=== PATIENT | male | born 1965 | race Caucasian/White ===

== ENCOUNTER 2019-07-16 14:09 | Inpatient (IN) ==
--- NOTE | 2019-07-16 22:28 | HISTORY AND PHYSICAL ---
REASON FOR ADMISSION: Small bowel obstruction. HISTORY OF PRESENT ILLNESS: This is 53-year-old gentleman who has an extensive surgical history. He has been operated on by Dr. Medel and Dr. Ibrahim several times for bowel obstructions dating all way to the 90s, he says 5 times. Most recently he had a left inguinal hernia repair by Dr. Ibrahim. Towards the end of last week, he developed a decrease in bowel function, nausea, vomiting, abdominal distention, and colicky abdominal pains and was referred to [facility] by his primary care physician, who is in [place]. He was treated with an NG tube and apparently had imaging there that suggested a bowel obstruction, but they requested transfer [place] for continuity of the surgical care, as most of his surgical history has been here, as well as this is his hometown. He was transferred. He says this afternoon he has begun passing gas. His abdomen has become much less distended. His NG tube output has been quite high. He has had a colonoscopy within the year that was without concerns, and prior to this was in his usual state of health. Had not eaten anything unusual. MEDICAL HISTORY: He has degenerative spine disease and chronic pain associated with this. He has had prostate cancer. SURGICAL HISTORY: He has had numerous cervical spine operations. He has had at least 5 exploratory laparotomies, 1 of which included appendectomy, and he has had an open left inguinal hernia repair. SOCIAL HISTORY: Denies tobacco, alcohol, or drugs. He is on disability. He has an attentive who is here with him. FAMILY HISTORY: Negative for cancer. REVIEW OF SYSTEMS: Ten-point review of system was performed and negative unless otherwise mentioned in HPI. PHYSICAL EXAMINATION: VITAL SIGNS: He is afebrile. He is not tachycardic. PULMONARY: No increased work of breathing. GENERAL: He is alert. HEENT: Nasogastric tube in place with minimal output. NECK: No cervical masses. CARDIOVASCULAR: Normal rate. ABDOMEN: Soft, nontender, nondistended. He has a midline incision without any incisional hernia. INTEGUMENT: Warm, dry, without jaundice. PSYCHIATRIC: Appropriate affect. NEUROLOGIC: No gross deficits. PERIPHERAL VASCULAR: No lower extremity edema. LABORATORY DATA: Pending. IMAGING: Pending, but outside imaging, per patient report, suggested bowel obstruction. ASSESSMENT AND PLAN: A 53-year-old gentleman with recurrent bowel obstruction. His abdominal exam is benign. We will check labs including a urinalysis and blood cultures, as he has been outside for quite some time. Will continue nasogastric tube decompression. I am encouraged that he has had return of bowel function this afternoon via flatus, and will plan for at least plain film imaging to confirm nasogastric tube placement as well as most likely repeat CT scan versus small-bowel follow-through. We discussed the possibility of surgical exploration if his bowel obstruction fails to resolve, but I am confident that he is clinically improving. I have ordered a PPI and Lovenox for him. I have encouraged him to be out of bed and ambulating. We will monitor his electrolytes and continue IV hydration, antiemetics and pain medicine as needed. cc: Angel Andrea MD
[2019-07-16] MEDS: PROTONIX IV SCH (22:33)
[2019-07-16] MEDS: LOVENOX SUBQ SCH (22:34)
[2019-07-16] MEDS: LR 1,000 ML IV SCH (22:38)
[2019-07-16] MEDS: DILAUDID IV PRN (23:37)
[2019-07-16] MEDS: ZOFRAN IV PRN (23:37)
[2019-07-17] MEDS: DILAUDID IV PRN ×6 (03:32→21:35)
[2019-07-17] MEDS: ZOFRAN IV PRN ×5 (03:33→21:35)
[2019-07-17 06:52] LABS: URINE SOURCE CLEAN CATCH
[2019-07-17 07:11] LABS: BILIRUBIN URINE NEGATIVE (NEGATIVE); BLOOD URINE NEGATIVE (NEGATIVE); COLOR YELLOW; GLUCOSE URINE NEGATIVE (NEGATIVE); KETONE URINE 40 mg/dL (NEGATIVE); LEUKOCYTES URINE NEGATIVE (NEGATIVE); NITRITE URINE NEGATIVE (NEGATIVE); PH URINE 6.5; PROTEIN URINE TRACE mg/dL (NEGATIVE); TURBIDITY URINE CLEAR (CLEAR); UROBILINOGEN URINE 2 mg/dL (NORMAL)
[2019-07-17 07:12] LABS: HEMATOCRIT 48.1 % (42.0-52.0); HEMOGLOBIN 15.6 g/dL (14.0-18.0); MCH 29.9 PG (27-31); MCHC 32.4 g/dL (33-37); MCV 92.1 FL (81-99); MPV 10.4 FL (7.4-10.4); RBC 5.22 XMIL (4.7-6.1); RDW 12.1 % (11.5-14.5); WBC 10.4 X1000 (4.8-10.8)
[2019-07-17 07:13] LABS: UR EPITHELIAL CELLS <10 /HPF (<10); URINE BACTERIA NEGATIVE /HPF; URINE RBC <10 /HPF (<10); URINE WBC <10 /HPF (<10)
[2019-07-17 07:25] LABS: INR 1.14; PROTIME 14.8 Seconds (11.0-16.0)
[2019-07-17 08:01] LABS: AGAP 13; ALB/GLOB RATIO 1.8; ALBUMIN 4.2 g/dL (3.5-5.0); ALKALINE PHOSPHATASE 75 U/L (32-122); BUN 30 mg/dL (8-22); CALCIUM 9.1 mg/dL (8.8-10.2); CHLORIDE 102 mmol/L (98-107); COSMO 285; CREATININE 0.8 mg/dL (0.7-1.2); ESTIMATED GFR > 60; GLUCOSE 94 mg/dL (70-104); GOT 23 U/L (10-34); GPT 27 U/L (10-44); MAGNESIUM 2.6 mg/dL (1.5-2.7); POTASSIUM 4.7 mmol/L (3.5-5.1); SODIUM 140 mmol/L (136-145); TCO2 25 mmol/L (25-35); TOTAL BILIRUBIN 0.72 mg/dL (0.20-1.00); TOTAL PROTEIN 6.5 g/dL (6.3-8.3)
--- NOTE | 2019-07-17 08:49 | Diag Imaging Result Doc PS360 ---
EXAM: ABDOMEN FLAT/UPRIGHT 07/17/2019 HISTORY: small bowel obstruction TECHNIQUE: Flat and upright abdomen COMMENT: There is an NG tube with its tip in the distal stomach or duodenum. There is a fair amount of stool throughout the colon. The small bowel is not distended. There are phleboliths in the pelvis. There is no evidence of organomegaly or mass. No previous studies are available for comparison. IMPRESSION: Constipation. Electronically signed by Flavio Flores 07/17/2019 8:46 AM
--- NOTE | 2019-07-17 11:26 | Diag Imaging Result Doc PS360 ---
EXAM: CT ABD/PELVIS W/PO AND IV CON 07/17/2019 HISTORY: small bowel obstruction TECHNIQUE: This exam was performed using automated exposure control, adjustment of mA or kV according to patient size, and/or use of iterative reconstruction technique. COMMENT: There are no previous studies available for comparison. There are apparent atelectatic platelike opacities in the lower lobes bilaterally. There is an NG tube with its tip in the gastric antrum near the pylorus. The aorta is not distended. The mesenteric and renal arteries are patent. There is no evidence of nephrolithiasis or hydronephrosis. There are number of cortical cysts present in the right kidney. The pancreas is unremarkable. The spleen and adrenal glands are not enlarged. The liver is slightly hypodense suggesting fatty change. There is apparent sludge in the gallbladder. There is some stranding in the fat surrounding the gallbladder. There is a moderate amount of stool present in the colon particularly the ascending and transverse colon. Oral contrast is present in the right colon. There are some small bowel loops in the upper mid and left abdomen which are slightly distended but no mucosal thickening is present. There are some prominent mesenteric nodes. Pelvis: By history the appendix is surgically absent. There is some diverticulosis in the sigmoid colon without evidence of diverticulitis. Is gas and stool in the sigmoid and rectum. Some calcifications are present in the prostate gland which measures 5.1 cm in transverse dimension. The urinary bladder is not distended. There is no free fluid or significant adenopathy in the pelvis. There are spondylotic changes in the lumbar spine. No acute bony abnormalities are present. IMPRESSION: 1. Bibasilar atelectasis. 2. The possibility of cholecystitis cannot be excluded. 3. Questionable ileus. No evidence of small bowel obstruction. Oral contrast in the colon. 4. Constipation. Nonacute findings as described above. Electronically signed by Flavio Flores 07/17/2019 11:24 AM
[2019-07-17] MEDS: LR 1,000 ML IV SCH ×4 (13:36→21:42)
--- NOTE | 2019-07-17 14:52 | GENERAL SURGERY PROGRESS NOTE ---
DATE: 07/17/2019 SUBJECTIVE: He has had some intermittent colicky pains. Feeling some better, passing some gas, no bowel movement. No fevers. No tachycardia. OBJECTIVE: Vitals: Blood pressure 143/86. General: He is alert. HEENT: NG tube is in place with some bilious and bloody output. Cardiovascular: Normal rate. Abdomen: Soft, nontender, nondistended. LABS: I reviewed his labs. White count 10, hematocrit 48. LFTs are normal. Creatinine is normal. Electrolytes are okay. Urinalysis shows no leukocytes, no nitrites. He has had an abdominal x-ray and CT scan that do not show any clear bowel obstruction. He does have quite a lot of stool in his colon, and there is some old contrast in his colon as well, some possible changes in the gallbladder. ASSESSMENT AND PLAN: This is a 53-year-old gentleman with apparent resolving bowel obstruction. This has been a recurrent issue for him. Continue his NG tube today. Plan on maybe placing it to gravity or removal tomorrow, but otherwise, I think he is resolving his bowel obstruction without an operation. cc: Angel Andrea MD
[2019-07-17] MEDS: LOVENOX SUBQ SCH (20:03)
[2019-07-17] MEDS: SODIUM CHLORIDE 0.9% INJ SCH (20:03)
[2019-07-17] MEDS: PROTONIX IV SCH (20:03)
[2019-07-18] MEDS: DILAUDID IV PRN ×6 (03:32→20:58)
[2019-07-18] MEDS: ZOFRAN IV PRN ×4 (03:32→20:59)
[2019-07-18] MEDS: LR 1,000 ML IV SCH ×3 (13:00→23:02)
--- NOTE | 2019-07-18 20:07 | Diag Imaging Result Doc PS360 ---
EXAM: US ABDOMEN-COMPLETE INDICATION: abdominal pain COMPARISON: None. FINDINGS: There is sludge and floating debris in the gallbladder lumen. No shadowing stones are identified. The gallbladder wall is mildly thickened measuring up to 4 mm in thickness. The common bile duct is normal in diameter. Sonographic Florez's sign was reported to be negative. The liver echotexture is mildly increased diffusely suggesting hepatic steatosis. Portal venous flow is hepatopetal. The pancreas is obscured. The aorta is obscured. The IVC is unremarkable. The spleen is unremarkable. There is a 2.7 cm right renal cyst. The kidneys are unremarkable, otherwise. IMPRESSION: 1.Sludge and floating debris in the gallbladder lumen with mild wall thickening. Although sonographic Florez's sign was reported to be negative, cholecystitis cannot be completely excluded. 2.Suggestion of mild hepatic steatosis. Electronically signed by Madan Leung 07/18/2019 8:05 PM
--- NOTE | 2019-07-18 21:17 | GENERAL SURGERY PROGRESS NOTE ---
DATE: 07/18/2019 SUBJECTIVE: He continues to have intermittent pain, he says mostly in the epigastrium and right upper quadrant. No fevers. No tachycardia. Blood pressure 148/80. He is passing some gas, but he said a small amount. NG tube output has been 550 recorded, down from yesterday. OBJECTIVE: He is alert.Cardiovascular: Normal rate. Pulmonary: No increased work of breathing. NG tube is in place. Abdomen: Soft, only subjective tenderness no peritonitis, no guarding, nondistended. LABS: I reviewed his repeat CT scan that he had done. Shows no clear obstruction. There is some possible ileus, but there is oral contrast noted in the colon and then there is some changes to his gallbladder that are unclear. Given these findings, I will keep his NG tube in today. He said he felt worse when the tube was not suctioning properly. We will obtain an abdominal ultrasound to evaluate his gallbladder and we will get a small-bowel follow-through to further evaluate the transit of the small bowel. If he fails to improve this, he may warrant exploration with cholecystectomy, but we will see. cc: Angel Andrea MD
[2019-07-18] MEDS: PROTONIX IV SCH (23:03)
[2019-07-18] MEDS: SODIUM CHLORIDE 0.9% INJ SCH (23:03)
[2019-07-18] MEDS: LOVENOX SUBQ SCH (23:03)
[2019-07-19] MEDS: MORPHINE IV PRN ×10 (00:11→22:24)
[2019-07-19] MEDS: ZOFRAN IV PRN ×5 (02:08→22:24)
[2019-07-19] MEDS: LR 1,000 ML IV SCH ×3 (05:00→19:52)
[2019-07-19 07:02] LABS: BASO# 0.02 X1000 (0.0-0.2); BASO% 0.2 % (0.0-0.8); EOS# 0.05 X1000 (0.0-0.7); EOS% 0.5 % (0.0-10.0); HEMATOCRIT 49.2 % (42.0-52.0); HEMOGLOBIN 16.7 g/dL (14.0-18.0); LYMPH# 1.65 X1000 (1.2-3.4); LYMPH% 16.7 % (20.5-51.1); MCH 29.8 PG (27-31); MCHC 33.9 g/dL (33-37); MCV 87.7 FL (81-99); MONO# 0.89 X1000 (0.11-0.59); MPV 10.4 FL (7.4-10.4); NEUT# 7.25 X1000 (1.4-6.5); NEUT% 73.6 % (42.2-75.2); PLT 292 X1000 (130-400); RBC 5.61 XMIL (4.7-6.1); RDW 11.6 % (11.5-14.5); WBC 9.86 X1000 (4.8-10.8)
[2019-07-19 07:48] LABS: AGAP 12; ALB/GLOB RATIO 1.2; ALBUMIN 3.7 g/dL (3.5-5.0); ALKALINE PHOSPHATASE 72 U/L (32-122); BUN 22 mg/dL (8-22); CALCIUM 9.1 mg/dL (8.8-10.2); CHLORIDE 98 mmol/L (98-107); COSMO 274; CREATININE 0.7 mg/dL (0.7-1.2); ESTIMATED GFR > 60; GLUCOSE 78 mg/dL (70-104); GOT 21 U/L (10-34); GPT 24 U/L (10-44); LIPASE 27 U/L (13-60); MAGNESIUM 2.2 mg/dL (1.5-2.7); POTASSIUM 4.4 mmol/L (3.5-5.1); SODIUM 136 mmol/L (136-145); TCO2 26 mmol/L (25-35); TOTAL BILIRUBIN 0.63 mg/dL (0.20-1.00); TOTAL PROTEIN 6.7 g/dL (6.3-8.3)
--- NOTE | 2019-07-19 09:59 | Diag Imaging Result Doc PS360 ---
SMALL BOWEL SERIES ONLY - 07/19/2019 INDICATION: possible bowel obstruction TECHNIQUE: Total fluoroscopy time was 35 seconds. 12 images were obtained. COMPARISON: CT from 07/17/2019 FINDINGS: There is a nasogastric tube in good position in the distal most stomach. Previously administered enteric contrast fills the colon. There is good passage of contrast throughout the small bowel, reaching the colon by 60 minutes. There is a moderately distended abnormal loop of small bowel in the central anterior abdomen on the prior CT. This remains somewhat abnormally dilated throughout this exam as well. However this does not cause significant delay in progress of contrast. This bowel loop measures 3.6 cm in caliber. IMPRESSION: Persistent abnormally distended loop of small bowel in the central abdomen presumably due to adhesions. However this does not cause significant obstruction of passage of liquid material. Electronically signed by Mat Oden 07/19/2019 9:57 AM
--- NOTE | 2019-07-19 20:47 | GENERAL SURGERY PROGRESS NOTE ---
DATE: 07/19/2019 SUBJECTIVE: He continues pass gas. He has had a bowel movement. No fevers. No tachycardia. NG tube output has been decreasing. OBJECTIVE: He is alert.Cardiovascular: Normal rate. Abdomen: Soft, nontender. I reviewed his abdominal ultrasound obtained yesterday evening. It shows sludge and debris in the lumen and possibly some wall thickening but sonographic Florez sign is negative. His common duct is normal. He does have some mild hepatic steatosis. He also had a small bowel follow-through that showed flow of contrast into the colon in an hour. There are some prominent bowel loops but there is no obvious evidence of obstruction. ASSESSMENT AND PLAN: This is a 53-year-old gentleman with a resolved bowel obstruction. We will remove his NG tube and give him clear liquids. His abdominal exam remains very benign. Indeterminate findings of his gallbladder, although his LFTs are normal with normal lipase and I doubt that this is biliary pathology, but we will keep this in the back of our minds. Discussed with him we plan for advancing diet tomorrow, possible home tomorrow. cc: Angel Andrea MD
[2019-07-19] MEDS: PROTONIX IV SCH (21:19)
[2019-07-19] MEDS: SODIUM CHLORIDE 0.9% INJ SCH (21:20)
[2019-07-19] MEDS: LOVENOX SUBQ SCH (21:20)
[2019-07-20] MEDS: MORPHINE IV PRN ×7 (01:05→17:40)
[2019-07-20] MEDS: ZOFRAN IV PRN ×4 (03:03→17:40)
[2019-07-20] MEDS: LR 1,000 ML IV SCH ×5 (03:33→20:06)
[2019-07-20] MEDS ORDERED: DULCOLAX PR ONE (12:30)
[2019-07-20] MEDS: MIRALAX PO SCH (12:49)
--- NOTE | 2019-07-20 19:52 | GENERAL SURGERY PROGRESS NOTE ---
DATE: 07/20/2019 SUBJECTIVE: He is afebrile. No tachycardia. Blood pressure 139/80. He is alert. Cardiovascular normal rate. Abdomen soft, nontender. He is walking about the room. He has been tolerating clear liquids. Yesterday, his white count was normal. LFTs normal. Creatinine normal. Electrolytes are okay. ASSESSMENT AND PLAN: A 53-year-old gentleman admitted with a bowel obstruction. This has resolved. He is passing flatus. He did have quite a lot of stool noted on his small-bowel follow- through. I am going to give him a Dulcolax suppository and start him on MiraLAX today. I think he will be ready to discharge soon. He had some sludge in his gallbladder. We will follow this as an outpatient. He may benefit from a cholecystectomy, but we will monitor him going forward. cc: Angel Andrea MD
[2019-07-20] MEDS: SODIUM CHLORIDE 0.9% INJ SCH (20:07)
[2019-07-20] MEDS: LOVENOX SUBQ SCH (20:07)
[2019-07-20] MEDS: PROTONIX IV SCH (20:07)
[2019-07-21] MEDS: MORPHINE IV PRN ×9 (00:45→22:41)
[2019-07-21] MEDS: ZOFRAN IV PRN ×5 (02:54→22:41)
[2019-07-21] MEDS: LR 1,000 ML IV SCH ×2 (03:49→12:54)
[2019-07-21] MEDS: MIRALAX PO SCH ×2 (07:58→08:10)
[2019-07-21] MEDS ORDERED: ZANAFLEX PO PRN (16:39)
[2019-07-21] MEDS ORDERED: PRAVACHOL PO SCH (21:00)
[2019-07-21] MEDS: LOVENOX SUBQ SCH (21:28)
[2019-07-21] MEDS: NEURONTIN PO SCH (21:29)
--- NOTE | 2019-07-21 21:40 | GENERAL SURGERY PROGRESS NOTE ---
DATE: 07/21/2019 SUBJECTIVE: He is doing well. He is passing gas. He had a small bowel movement. He is ambulating the halls. Intermittent colicky pains, but these are much less so. He is on chronic pain medication. He had a suppository yesterday and he is on MiraLAX. OBJECTIVE: He is alert.Cardiovascular: Normal rate. Abdomen: Soft, nontender, nondistended. Integument: Warm, dry. LABORATORY DATA: No new labs yet this morning. PLAN: We will advance diet to soft. Suspect he can go home in the next 24 hours. Discussed low residual diet with the patient. He does have biliary sludge. We will monitor this. If he continues to have these intermittent symptoms, may be reasonable to perform cholecystectomy, although, he would be high risk for conversion to open, but I would allow him to completely resolve from this episode of bowel obstruction prior to doing that. cc: Angel Andrea MD
[2019-07-21] MEDS: PROTONIX IV SCH (22:41)
[2019-07-21] MEDS: SODIUM CHLORIDE 0.9% INJ SCH (22:41)
[2019-07-22] MEDS: MORPHINE IV PRN ×4 (03:57→11:18)
[2019-07-22] MEDS: ZOFRAN IV PRN ×2 (03:57→08:17)
[2019-07-22 07:23] LABS: BASO# 0.06 X1000 (0.0-0.2); BASO% 0.6 % (0.0-0.8); EOS# 0.11 X1000 (0.0-0.7); EOS% 1.1 % (0.0-10.0); HEMATOCRIT 49.8 % (42.0-52.0); HEMOGLOBIN 16.6 g/dL (14.0-18.0); IMM GRAN# 0.02 X1000 (0.0-0.04); IMM GRAN% 0.2 % (0.0-0.5); LYMPH# 1.71 X1000 (1.2-3.4); LYMPH% 17.2 % (20.5-51.1); MCH 29.2 PG (27-31); MCHC 33.3 g/dL (33-37); MCV 87.7 FL (81-99); MONO# 1.02 X1000 (0.11-0.59); MONO% 10.3 % (1.7-9.3); MPV 10.3 FL (7.4-10.4); NEUT# 7.01 X1000 (1.4-6.5); NEUT% 70.6 % (42.2-75.2); PLT 326 X1000 (130-400); RBC 5.68 XMIL (4.7-6.1); RDW 11.7 % (11.5-14.5); WBC 9.93 X1000 (4.8-10.8)
[2019-07-22 07:43] LABS: AGAP 14; BUN 8 mg/dL (8-22); CALCIUM 9.2 mg/dL (8.8-10.2); CHLORIDE 100 mmol/L (98-107); COSMO 276; CREATININE 0.9 mg/dL (0.7-1.2); ESTIMATED GFR > 60; GLUCOSE 94 mg/dL (70-104); POTASSIUM 4.2 mmol/L (3.5-5.1); SODIUM 139 mmol/L (136-145); TCO2 25 mmol/L (25-35)
[2019-07-22] MEDS: MICARDIS PO SCH ×2 (08:20→11:19)
[2019-07-22] MEDS: MIRALAX PO SCH ×2 (08:20→11:19)
[2019-07-22] MEDS: NEURONTIN PO SCH ×2 (08:20→11:19)
--- NOTE | 2019-07-22 09:55 | GASTROENTEROLOGY CONSULTATION ---
DATE: 07/22/2019 REASON FOR CONSULTATION: Possible ulcer. HISTORY OF PRESENT ILLNESS: Mr. Nunez is a 53-year-old male, who has been here in the hospital since 07/16/2019. The patient has the history of multiple surgeries done in the past that involves his neck, 5 exploratory laparotomies which included appendectomy and inguinal hernia repair. The patient mentioned that he started having stomach cramps last Thursday, and on he started throwing up. He rated his stomach cramps 9/10 and described it as cramping, colicky abdominal pain. He went to [facility], an x-ray was taken and it showed that he had some small- bowel blockage. A CT scan at [place] showed that he had some gallbladder blockage. The patient was brought to [facility] and an NG tube was placed with high amount of output draining through the tube. His NG tube was taken out 2 days back. The patient mentioned that he had a colonoscopy a year back with Dr. Barrera and it was a normal. The patient does have a history of prostate cancer, but it is just monitored. He is not getting any chemo or radiation. Patient has currently denied any nausea, vomiting or abdominal pain. PAST MEDICAL HISTORY: Hypertension, high cholesterol, degenerative spine disease, chronic pain, prostate cancer. PAST SURGICAL HISTORY: Multiple neck surgeries, hernia repair, exploratory laparotomy, appendectomy. SOCIAL HISTORY: The patient is , has 2 kids. He has denied any alcohol, drugs or tobacco abuse. The patient is currently on disability. FAMILY HISTORY: Dad had prostate cancer. ALLERGIES: No known drug allergies. HOME MEDICATIONS: Gabapentin ER 600 mg three times a day, oxycodone HCL/acetaminophen 10/325 mg one tablet p.o. 3 times a day, meloxicam 15 mg p.o. twice a day as needed, telmisartan 40 mg p.o. daily, tizanidine HCL 4 mg p.o. at bedtime as needed, and pravastatin 80 mg p.o. at bedtime. REVIEW OF SYSTEMS: As per HPI. Otherwise, 12 point review of systems negative. PHYSICAL EXAMINATION: Vital Signs: Temperature 98.3 degrees, pulse 67, respirations 18, blood pressure is 145/82, oxygen saturation 98% on room air. Patient's weight is 179 pounds, BMI is 25.7 kg/m2. General: He is alert, oriented x3. Answering questions appropriately, and in no acute distress. HEENT: Pale conjunctivae, no icterus. Neck: Supple. Lungs: Clear to auscultation. Cardiovascular: Regular rate and rhythm. Abdomen: Soft, tender. Active bowel sounds heard in all 4 quadrants. Extremities: No clubbing, no cyanosis, no edema. Pedal pulses 2+ present bilaterally. Neurologic: Alert and oriented x3. Nonfocal. Cranial nerves 2-12 grossly intact. LABORATORY DATA: WBCs are 9.93, RBC 5.68, hemoglobin 16.6, hematocrit is 49.8, platelet count is 326. Sodium 139, potassium 4.2, chloride 100, carbon dioxide 25, anion gap 14. BUN 8, creatinine 0.9, glucose 94, calcium 9.2. IMAGING: Abdominal x-ray on 07/17 showed constipation. Abdomen and pelvis CT on 07/17 showed bibasilar atelectasis, possibility of cholecystitis cannot be excluded. Questionable ileus. No evidence of small-bowel obstruction, constipation. Abdominal ultrasound on 07/18 showed sludge and floating debris in the gallbladder lumen with mild wall thickening. Cholecystitis cannot be excluded and suggestions of mild hepatic steatosis. Small-bowel x-ray on 07/19 has shown persistent abnormally distended loop of small bowel in the central abdomen, presumably due to adhesions. However, this does not cause significant obstruction of passage of liquid material. EGD FINDINGS: Mucosa of the esophagus was normal. Gastritis in the gastric body and gastric antrum, biopsy performed. Duodenal inflammation was found in the duodenal bulb. Duodenal mucosa had no abnormalities in the 2nd part of the duodenum. Biopsy results are pending. IMPRESSION AND PLAN 1. Nausea and vomiting. 2. Abdominal pain. 3. Gastritis 4. Duodenitis 5. Resolving SBO PLAN: Mr. Nunez is a 53-year-old male with a history of degenerative spine disease and history of prostate cancer. Gastroenterology has been consulted for possible ulcers. We did an EGD today that showed mild gastritis and duodenitis. We have recommended him to continue PPI daily for 90 days. Avoid taking NSAIDS. Patient will be on clear liquid diet, advance as tolerated. Patient's abdominal pain has improved. From the GI standpoint patient can be discharged and he can follow-up with Dr. Santizo upon discharge. This plan was discussed with Dr. Gamez. Thank you for your consult. Please call us for any further questions or concerns. Dictated by AKUA Loya for Jose Gamez MD cc: Angel Andrea MD Physician Attestation I have seen and examined the patient. I have discussed and reviewed the note by Karen FATIMA and agree with findings and plan as documented. MTDD
[2019-07-22] MEDS ORDERED: DIPRIVAN 1% ONE (10:34)
--- NOTE | 2019-07-22 11:02 | ENDOSCOPY OPERATIVE NOTE ---
[facility] ENDOSCOPY OPERATIVE NOTE , EGD PROCEDURE REPORT EXAM DATE: 07/22/2019 PATIENT NAME: Isidro Nunez MR#: [id number] BIRTHDATE: 1965 ATTENDING: Jose Gamez MD STATUS: inpatient BUSINESS JOB TITLES: INDICATIONS: The patient is a 53 yr old male here for an EGD due to periumbilical abdominal pain and r/o PUD. PROCEDURE PERFORMED: EGD w/ biopsy MEDICATIONS: Per Anesthesia ESTIMATED BLOOD LOSS: None CONSENT: The patient understands the risks and benefits of the procedure and understands that these r isks include, but are not limited to: sedation, allergic reaction, infection, perforation and/or bleeding. Alternative means of evaluation and treatment include, among others: physical exam, x-rays, and/or surgical intervention. The patient elects to proceed with this endoscopic procedure. DESCRIPTION OF PROCEDURE: During pre-op preparation period all mechanical and medical equipment was c hecked for proper function. Hand hygiene and appropriate measures for infection prevention was taken. After the risks, benefits and alternatives of the procedure were thoroughly explained, Informed consent was verified, confirmed and timeout was successfully executed by the treatment team. The patient was anesthetized with topical anesthesia and the endoscope was introduced through the mouth and advanced to the second portion of the duodenum. Retroflexion wa s performed in the stomach and revealed no abnormalities. The gastroscope was then slowly withdrawn and removed. The p atient's toleration of the procedure was excellent. ESOPHAGUS: The mucosa of the esophagus appeared normal. The z-line was noted at 40cm from the incis ors. The z-line appeared normal. STOMACH: Mild gastritis (inflammation) was found in the gastric body and gastric antrum. A biopsy wa s performed using cold forceps. Sample sent for histology. DUODENUM: Mild duodenal inflammation was found in the duodenal bulb. The duodenal mucosa showed no abnormalities in the 2nd part of the duodenum. ADVERSE EVENTS: There were no complications. IMPRESSIONS: 1. The mucosa of the esophagus appeared normal 2. The z-line was noted at 40cm from the incisors 3. Gastritis (inflammation) was found in the gastric body and gastric antrum; biopsy was performed 4. Duodenal inflammation was found in the duodenal bulb 5. The duodenal mucosa showed no abnormalities in the 2nd part of the duodenum RECOMMENDATIONS: 1. Await biopsy results 2. Pantoprazole 40mg PO once daily 3. Minimize NSAIDs 4. Clear liquid diet 5. No upper GI symptoms to explain patients periumbilical abdominal pain, which has improved 6. Will sign off. Further recommendations per primary team. Patient should follow-up with primary GI, Dr. Santizo upon discharge. REPEAT EXAM: Jose Gamez MD eSigned: Jose Gamez MD 07/22/2019 11:02 AM CC: CPT CODES: 31163 Upper gastrointestinal endoscopy including esophagus, stomach, and either the du odenum and/or jejunum as appropriate; with biopsy, single or multiple ICD CODES: 789.05 Abdominal pain,periumbilical 535.50 Unspecified gastritis and gastroduodenitis (without hemorrhage) 535.60 Duodenitis (without mention of hemorrhage) The ICD and CPT codes recommended by this software are interpretations from the data that the [facility] staff has captured with the software. The verification of the translation of this report to the ICD and CPT co kimberly and modifiers is the sole responsibility of the health care institution and practicing physician where this report was generated. [employer] will not be held responsible for the validity of the ICD and CPT codes i ncluded on this report. [facility] assumes no liability for data contained or not contained herein. CPT is a registered tra demark of the [employer]. PATIENT NAME: Isidro Nunez MR#: [id number]
[2019-07-22 12:13] VITALS: BP 120/85
[2019-07-22] MEDS ORDERED: CARAFATE PO SCH (13:00)
[2019-07-22] MEDS ORDERED: PERIDEX MT SCH (21:00)
[2019-07-23] MEDS ORDERED: PROTONIX PO SCH (07:00)
--- NOTE | 2019-07-23 13:54 | DISCHARGE SUMMARY ---
ADMISSION DATE: 07/16/2019 DISCHARGE DATE: 07/22/2019 ADMITTING DIAGNOSIS: Bowel obstruction. DISCHARGE DIAGNOSIS: Bowel obstruction plus gastritis and biliary sludge. PROCEDURE PERFORMED: Esophagogastroduodenoscopy with biopsy. CONSULTATION: Gastroenterology. HISTORY OF PRESENT ILLNESS: A 53-year-old male who has had recurrent bowel obstruction, has been operated on numerous times. He had a bowel obstruction, was admitted [facility], was transferred here at the request of the patient. HOSPITAL COURSE: His bowel obstruction seems to be resolved. Upon arrival, he is having bowel function. His abdomen became less distended. We repeated x-ray that showed no evidence of ongoing obstruction. Small-bowel follow-through confirmed this on the with rapid flow contrast into the colon. Abdominal ultrasound showed some biliary sludge within the lumen of the gallbladder with no biliary dilation. No jonathan signs of cholecystitis. His LFTs are normal. White count was normal. After removal of the NG tube, he continued to have pain with eating in the epigastrium, some associated nausea and his NG tube output had been somewhat bloody. As such we consulted Gastroenterology and they scoped him showing gastritis, but no discrete ulcer. He improved with the initiation of Carafate. He has been on a PPI throughout his course, as well as Lovenox, and he requested to go home on a soft diet with Carafate. We will see him in a week in the office. DISCHARGE MEDICATIONS: Continue home medications, holding Mobic and continued Carafate for 14 days as well b.i.d. proton pump inhibitor. He will call with any worsening. cc: Angel Andrea MD
== END 2019-07-22 15:05 | disposition home or self-care (01) | DRG 390 ==
LOC: DIRADM 14:09 → 4N 19:55
PROVIDERS: ADMIT Surgery; ATTEND Surgery

== ENCOUNTER 2019-08-24 05:40 | Inpatient (IN) ==
--- NOTE | 2019-08-22 10:10 | EKG Report ---
Test Performed on : 08/22/2019 10:05:14 AM Test Reason : pat Blood Pressure : / mmHG Vent. Rate : 063 BPM Atrial Rate : 063 BPM P-R Int : 174 ms QRS Dur : 102 ms QT Int : 372 ms P-R-T Axes : 055 087 015 degrees QTc Int : 380 ms Normal sinus rhythm. Normal ECG No previous ECGs available Confirmed by Ramiro Bryant MD ([id number]) on 08/22/2019 5:31:36 PM
[2019-08-22 10:35] LABS: HEMATOCRIT 46.9 % (42.0-52.0); HEMOGLOBIN 15.5 g/dL (14.0-18.0); MCH 29.2 PG (27-31); MCV 88.5 FL (81-99); MPV 9.9 FL (7.4-10.4); RBC 5.3 XMIL (4.7-6.1); RDW 12.3 % (11.5-14.5); WBC 9.09 X1000 (4.8-10.8)
[2019-08-22 10:50] LABS: AGAP 10; BUN 14 mg/dL (8-22); CALCIUM 9.5 mg/dL (8.8-10.2); CHLORIDE 101 mmol/L (98-107); COSMO 278; CREATININE 0.9 mg/dL (0.7-1.2); ESTIMATED GFR > 60; GLUCOSE 94 mg/dL (70-104); POTASSIUM 4.5 mmol/L (3.5-5.1); SODIUM 139 mmol/L (136-145); TCO2 28 mmol/L (25-35)
[2019-08-24] MEDS ORDERED: KEFZOL 1 GM/D5W 1 GM/50 ML IVPB ONE (06:27)
[2019-08-24] MEDS ORDERED: LR 1,000 ML ONE (06:27)
[2019-08-24] MEDS ORDERED: DIPRIVAN 1% ONE (06:31)
[2019-08-24] MEDS ORDERED: XYLOCAINE-MPF 2% ONE (06:32)
[2019-08-24] MEDS ORDERED: STERILE WATER INJ. ONE (06:34)
[2019-08-24] MEDS ORDERED: NORCURON ONE (06:34)
[2019-08-24] MEDS ORDERED: QUELICIN (DOSE) ONE (06:34)
[2019-08-24] MEDS ORDERED: SUFENTA ONE (06:36)
[2019-08-24] MEDS ORDERED: SODIUM CHLORIDE 0.9% ONE (07:34)
[2019-08-24] MEDS ORDERED: MARCAINE 0.5% PF ONE (07:50)
[2019-08-24] MEDS ORDERED: EXPAREL 1.3% ONE (07:50)
[2019-08-24] MEDS ORDERED: MARCAINE 0.25% ONE (07:51)
[2019-08-24] MEDS ORDERED: SODIUM CHLORIDE 0.9% 10 ML ONE (07:52)
[2019-08-24 08:27] LABS: URINE SOURCE CATH
[2019-08-24 08:32] LABS: BILIRUBIN URINE NEGATIVE (NEGATIVE); BLOOD URINE NEGATIVE (NEGATIVE); COLOR YELLOW; GLUCOSE URINE NEGATIVE (NEGATIVE); KETONE URINE NEGATIVE (NEGATIVE); LEUKOCYTES URINE NEGATIVE (NEGATIVE); NITRITE URINE NEGATIVE (NEGATIVE); PH URINE 5.5; PROTEIN URINE NEGATIVE (NEGATIVE); SP GRAVITY URINE 1.011; TURBIDITY URINE CLEAR (CLEAR); UROBILINOGEN URINE NORMAL (NORMAL)
[2019-08-24 08:33] LABS: UR EPITHELIAL CELLS <10 /HPF (<10); URINE BACTERIA NEGATIVE /HPF; URINE RBC <10 /HPF (<10); URINE WBC <10 /HPF (<10)
[2019-08-24] MEDS ORDERED: NEO-SYNEPHRINE ONE (10:50)
[2019-08-24] MEDS ORDERED: NEOSTIGMINE ONE (11:48)
--- NOTE | 2019-08-24 12:01 | Diag Imaging Result Doc PS360 ---
OPERATIVE CHOLANGIOGRAM - 08/24/2019 INDICATION: CHOLITHIASIS TECHNIQUE: The exam was performed by the patient's surgeon. Total fluoroscopy time was 84.5 seconds. Five images were obtained. COMPARISON: Ultrasound from 07/18/2019 FINDINGS: Contrast was infused into the cystic duct. This outlines a normal common bile duct. There was some passage of contrast into the duodenum. No stricture or evidence of filling defect. The hepatic ducts also appear normal. IMPRESSION: No complication. Electronically signed by Mat Oden 08/24/2019 11:59 AM
[2019-08-24] MEDS: DILAUDID ONE ×4 (12:32→12:57)
[2019-08-24] MEDS ORDERED: LR 500 ML ONE (12:36)
[2019-08-24] MEDS: OFIRMEV 1000 MG/ISOTONIC SOLN 1,000 MG/100 ML BOTTLE IV SCH ×2 (15:14→20:19)
[2019-08-24] MEDS: LR 1,000 ML IV SCH (18:42)
--- NOTE | 2019-08-24 20:07 | OPERATIVE NOTE ---
PROCEDURE DATE: 08/24/2019 PREOPERATIVE DIAGNOSES: 1. Symptomatic cholelithiasis. 2. Partial recurrent bowel obstructions. POSTOPERATIVE DIAGNOSES: 1. Symptomatic cholelithiasis with chronic cholecystitis. 2. Dense intra-abdominal adhesions with partial bowel obstruction. PROCEDURE PERFORMED: 1. Exploratory laparotomy with extensive lysis of adhesions greater than 3 hours. 2. Open cholecystectomy with cholangiogram. ESTIMATED BLOOD LOSS: 100 mL. SPECIMENS: Gallbladder. DRAINS: Ignacio drain left in the gallbladder fossa. ANESTHESIA: General with a TAP block. INDICATIONS: A gentleman who has had 5 exploratory laparotomies for bowel obstruction. He has had recurrent nausea, pain and obstructive type picture. He also had gallstones. OPERATIVE FINDINGS: 1. Dense intra-abdominal adhesions with fibrotic and vascularized adhesions throughout the abdomen. 2. There was chronic inflammation, thickening of the gallbladder wall with omental adhesions and colon adhesions up to it. 3. Cholangiogram showed flow of contrast through the cystic duct into a nondilated common bile duct into the duodenum with no filling defects and intrahepatic radicals bilaterally normal. OPERATIVE NOTE: Risks, benefits and alternatives were discussed with the patient. He consented to the procedure, seen preoperatively. Surgical site was confirmed. He was taken to the operating room placed supine position. General anesthesia induced without complication. All bony prominences were padded. Abdomen is prepped chlorhexidine solution and draped in fashion after hair was removed with clippers and a time-out was performed. He also had a TAP block and a Ely catheter and NG tube were placed. After a time-out, we made an epigastric incision, carried this down communicating with his previous midline incision in the lower aspect of his abdomen, carried down to the fascia. The fascia was incised. We entered the upper abdomen in an open controlled fashion. This area was free of adhesions above the liver, but there was dense matting of adhesions inferiorly. Over the next 3 hours we lysed these adhesions from the abdominal wall first and identified the cecum and worked retrograde along the small bowel lysing the interloop adhesions. There was 1 small serosal injury that was related to his dense adhesions. It was imbricated with 3-0 Vicryl. This was not full thickness. He had several loops stuck within the pelvis as well. These were felt to be a possible transition point, but there was a dense matting of bowel centrally that was more likely, if any, the source. We felt that we had unfurled this adequately. There was no evidence of devascularized bowel. The colon remainder was normal. Stomach was normal. At this point, we turned our attention to the right upper quadrant. Also note, there was an Minesh wound protector in place. We had to take down the dense omental adhesions from the gallbladder down and retracted it cephalad identifying the infundibulum. There was a small cyst artery that was encircled and clipped. We took the gallbladder down in a dome-down fashion identifying the cystic duct. A ductotomy was made and cholangiogram was performed. After satisfactory cholangiogram, we triply clipped the duct and divided it. The hemostasis was noted. We irrigated the abdomen copiously in all quadrants with warm saline. A Ignacio drain was placed in the gallbladder fossa and secured with a nylon suture. The fascia was then closed with a #1 running looped PDS suture. We irrigated the superficial wound and closed the skin with clips. Dressing was applied with gauze and Medipore tape. He tolerated it well with no complications. He awoken and was transferred recovery. We did confirm his NG tube was in good place. Counts were correct. cc: Angel Andrea MD
[2019-08-24] MEDS: DILAUDID IV PRN ×2 (20:20→23:47)
[2019-08-24] MEDS: PERIDEX MT SCH (20:20)
[2019-08-25] MEDS: OFIRMEV 1000 MG/ISOTONIC SOLN 1,000 MG/100 ML BOTTLE IV SCH ×2 (03:00→08:33)
[2019-08-25] MEDS: LR 1,000 ML IV SCH ×3 (03:00→23:03)
[2019-08-25] MEDS: DILAUDID IV PRN ×7 (03:14→23:01)
[2019-08-25 07:03] LABS: HEMATOCRIT 40.2 % (42.0-52.0); HEMOGLOBIN 13.6 g/dL (14.0-18.0); MCH 30.1 PG (27-31); MCHC 33.8 g/dL (33-37); MCV 88.9 FL (81-99); RBC 4.52 XMIL (4.7-6.1); RDW 12.5 % (11.5-14.5); WBC 13.34 X1000 (4.8-10.8)
[2019-08-25 07:40] LABS: AGAP 11; BUN 13 mg/dL (8-22); CALCIUM 8.8 mg/dL (8.8-10.2); CHLORIDE 99 mmol/L (98-107); COSMO 270; CREATININE 0.7 mg/dL (0.7-1.2); ESTIMATED GFR > 60; GLUCOSE 100 mg/dL (70-104); POTASSIUM 4.5 mmol/L (3.5-5.1); SODIUM 135 mmol/L (136-145); TCO2 25 mmol/L (25-35)
[2019-08-25] MEDS: LOVENOX SUBQ SCH (08:33)
[2019-08-25] MEDS: PERIDEX MT SCH ×2 (08:33→23:03)
--- NOTE | 2019-08-25 19:52 | GENERAL SURGERY PROGRESS NOTE ---
DATE: 08/25/2019 SUBJECTIVE: He feels okay. Minimal NG tube output. Pain has been reasonably controlled, but he is asking higher dose of dilaudid. No fevers. No tachycardia. OBJECTIVE: Vital signs; Blood pressure has been okay. General: His NG tube is in place with bilious output. Cardiovascular: Normal rate. Abdomen: Soft, nontender, nondistended. Incision intact. His drain was serosanguineous with no bile. LABORATORY DATA: White count 13, hematocrit 40, creatinine 0.7. ASSESSMENT AND PLAN: This is a 53-year-old gentleman status post exploratory laparotomy, lysis of adhesions and cholecystectomy. He is doing well. We will keep his NG tube today. I have encouraged him to be out of bed. His Ely is out, and he is voiding. We will increase his Dilaudid to 1 mg every 3 hours and continue ofirmiv He does have chronic pain and will follow along. Plan on removing his NG tube possibly tomorrow. cc: Angel Andrea MD MTDD
[2019-08-26] MEDS: DILAUDID IV PRN ×9 (02:11→22:05)
[2019-08-26] MEDS: LR 1,000 ML IV SCH ×3 (06:42→20:00)
[2019-08-26] MEDS: LOVENOX SUBQ SCH (10:52)
[2019-08-26] MEDS: PERIDEX MT SCH ×2 (10:52→20:00)
[2019-08-26] MEDS ORDERED: PROTONIX IV ONE (13:01)
[2019-08-26] MEDS ORDERED: SODIUM CHLORIDE 0.9% INJ ONE (13:01)
[2019-08-26] MEDS ORDERED: SODIUM CHLORIDE 0.9% INJ SCH (13:15)
[2019-08-26] MEDS: PROTONIX IV SCH (13:45)
--- NOTE | 2019-08-26 15:55 | GENERAL SURGERY PROGRESS NOTE ---
DATE: 08/26/2019 SUBJECTIVE: NG tube output has been quite a lot. No fevers. No tachycardia. OBJECTIVE: Blood pressure 154/87. General, he is alert. NG tube is bilious with some minimal bloody output. Abdomen is soft. WILLIAM drain serosanguineous. Dressings intact. No new labs. ASSESSMENT AND PLAN: A 53-year-old gentleman status post exploratory laparotomy with lysis of adhesions with cholecystectomy. He has an ileus as expected. We will keep his NG tube for now. He is on prophylactic Lovenox. His pain control is marginal. We will increase Dilaudid to every hour. He does take chronic pain medication at home. cc: Angel Andrea MD
[2019-08-26] MEDS: ZOFRAN IV PRN (19:59)
[2019-08-27] MEDS: DILAUDID IV PRN ×13 (00:13→23:58)
[2019-08-27] MEDS: ZOFRAN IV PRN ×3 (02:08→19:42)
[2019-08-27] MEDS: LR 1,000 ML IV SCH ×3 (04:22→22:09)
[2019-08-27] MEDS: LOVENOX SUBQ SCH (12:14)
[2019-08-27] MEDS: PERIDEX MT SCH ×2 (12:14→20:16)
[2019-08-27] MEDS: PROTONIX IV SCH (12:14)
[2019-08-27] MEDS: OFIRMEV 1000 MG/ISOTONIC SOLN 1,000 MG/100 ML BOTTLE IV SCH ×2 (15:02→20:16)
--- NOTE | 2019-08-27 15:17 | PROGRESS NOTE ---
DATE: 08/27/2019 SUBJECTIVE: Mr. Isidro Nunez is a 53-year-old white male, status post open lysis of adhesions and cholecystectomy. He has a drain in place along his right upper quadrant and it is draining just serous fluid. No evidence of any bile. He is awake cooperative he states he and slept well because of pain. OBJECTIVE: Heart rate is 81, blood pressure 150/89, O2 saturation 96%. He is afebrile. There has been no laboratory data. He is receiving Dilaudid for pain and we will add IV Tylenol. He still had no bowel activity. His midline incision is dressed and he has an NG tube in place. PLAN: We will continue NG suction for now. cc: MD Angel Donato MD
[2019-08-28] MEDS: DILAUDID IV PRN ×11 (01:09→22:57)
[2019-08-28] MEDS: LR 1,000 ML IV SCH ×4 (01:09→15:08)
[2019-08-28] MEDS: OFIRMEV 1000 MG/ISOTONIC SOLN 1,000 MG/100 ML BOTTLE IV SCH ×2 (01:15→08:17)
[2019-08-28] MEDS: ZOFRAN IV PRN (03:35)
[2019-08-28] MEDS ORDERED: TYLENOL PO PRN (10:00)
[2019-08-28] MEDS: PERIDEX MT SCH ×2 (10:16→20:00)
[2019-08-28] MEDS: LOVENOX SUBQ SCH (10:16)
--- NOTE | 2019-08-28 10:24 | PROGRESS NOTE ---
DATE: 08/28/2019 Mr. Isidro Nunez is a 53-year-old, white male who is now postoperative day 4 from an open cholecystectomy per Dr. Andrea and also lysis of adhesions. We have had a problem with pain control in him over the weekend. He is asking for Dilaudid hourly, says he has not slept. His abdomen is soft. His midline incision is healing well. His Ignacio drain is draining serous fluid. His heart rate is 75, blood pressure 128/78, O2 saturation 98%. He is afebrile. He is voiding without difficulty. PLAN: I removed his NG tube today. I also removed his Ignacio drain which was in the right upper quadrant of his abdomen. I will begin a clear liquid diet and I will change his pain medication from IV to oral. He has been good about getting up in a chair. His abdomen is soft. It is not distended and he has bowel sounds. cc: MD Angel Donato MD
[2019-08-28] MEDS: NORCO-10 PO PRN ×2 (11:33→17:57)
[2019-08-28] MEDS: NEURONTIN PO SCH ×2 (13:39→16:57)
[2019-08-28] MEDS: MOTRIN PO SCH ×2 (13:57→16:57)
[2019-08-29] MEDS: DILAUDID IV PRN ×4 (02:39→16:39)
[2019-08-29] MEDS: LR 1,000 ML IV SCH ×3 (02:40→16:36)
[2019-08-29] MEDS: NORCO-10 PO PRN ×2 (07:37→21:26)
[2019-08-29] MEDS: MICARDIS PO SCH (08:32)
[2019-08-29] MEDS: PERIDEX MT SCH ×2 (08:33→21:25)
[2019-08-29] MEDS: MOTRIN PO SCH ×3 (08:33→22:45)
[2019-08-29] MEDS: NEURONTIN PO SCH ×3 (08:33→21:26)
[2019-08-29] MEDS: LOVENOX SUBQ SCH (08:33)
[2019-08-29] MEDS: PRAVACHOL PO SCH (21:25)
--- NOTE | 2019-08-29 21:34 | GENERAL SURGERY PROGRESS NOTE ---
DATE: 08/29/2019 SUBJECTIVE: He is doing well. He is tolerating NG tube out, he is having bowel function, he is ambulating the halls. On exam he is alert. Cardiovascular, normal rate. Abdomen is soft, nontender. He is ambulating without difficulty. No new labs this morning. ASSESSMENT AND PLAN: Gentleman status post exploratory laparotomy, lysis of adhesions and open cholecystectomy. He is on prophylactic Lovenox. He has had return of bowel function, Dr. Gonzalez decreased the frequency of his pain medication and encourage to be out of bed. Will advance him to soft and plan on possibly home in the near future. cc: Angel Andrea MD
[2019-08-30] MEDS: DILAUDID IV PRN ×6 (00:56→21:19)
[2019-08-30] MEDS: LR 1,000 ML IV SCH (01:38)
[2019-08-30] MEDS: NORCO-10 PO PRN ×3 (04:16→17:36)
[2019-08-30] MEDS: LOVENOX SUBQ SCH (09:16)
[2019-08-30] MEDS: PERIDEX MT SCH ×2 (09:16→21:19)
[2019-08-30] MEDS: MOTRIN PO SCH ×3 (09:16→16:31)
[2019-08-30] MEDS: MICARDIS PO SCH (09:16)
[2019-08-30] MEDS: NEURONTIN PO SCH ×3 (09:16→16:31)
[2019-08-30] MEDS: DULCOLAX PR ONE ×2 (16:31→18:41)
--- NOTE | 2019-08-30 18:54 | GENERAL SURGERY PROGRESS NOTE ---
DATE: 08/30/2019 SUBJECTIVE: He is doing well. He is passing gas and has not had a bowel movement. He says he feels a little bloated. He is tolerating diet and ambulating the halls. Pain controlled. No fevers. No tachycardia. OBJECTIVE: Blood pressure 120/68. General: Is alert. Abdomen: Is soft. Incisions intact. No new labs. ASSESSMENT AND PLAN: A 53-year-old gentleman status post exploratory laparotomy with lysis of adhesions and open cholecystectomy. We will give him MiraLAX and Dulcolax suppository at his request and let him go home tomorrow if he feels okay. Otherwise, we will keep him on prophylactic Lovenox and GI soft diet. cc: Angel Andrea MD
[2019-08-30] MEDS: MIRALAX PO SCH (21:19)
[2019-08-30] MEDS: PRAVACHOL PO SCH (21:19)
[2019-08-31] MEDS: NORCO-10 PO PRN (00:01)
[2019-08-31] MEDS: DILAUDID IV PRN ×4 (05:08→16:30)
[2019-08-31] MEDS: MIRALAX PO SCH (08:47)
[2019-08-31] MEDS: PERIDEX MT SCH (08:47)
[2019-08-31] MEDS: MOTRIN PO SCH ×3 (08:47→16:34)
[2019-08-31] MEDS: NEURONTIN PO SCH ×3 (08:47→16:34)
[2019-08-31] MEDS: LOVENOX SUBQ SCH (08:47)
[2019-08-31] MEDS: MICARDIS PO SCH (08:47)
[2019-08-31 17:05] VITALS: BP 129/77
--- NOTE | 2019-09-01 09:37 | DISCHARGE SUMMARY ---
ADMISSION DATE: 08/24/2019 DISCHARGE DATE: 08/31/2019 ADMITTING DIAGNOSES: 1. Symptomatic cholelithiasis. 2. Partial small-bowel obstruction. POSTOPERATIVE DIAGNOSES: 1. Symptomatic cholelithiasis. 2. Partial small-bowel obstruction. PROCEDURE PERFORMED: Exploratory laparotomy with lysis of adhesions and open cholecystectomy. Date of surgery was 08/24/2019. HISTORY OF PRESENT ILLNESS: This is a 53-year-old gentleman who has had persistent intermittent abdominal pain after meals, associated with nausea. He has had numerous exploratory laparotomies with lysis of adhesions in the past for bowel obstructions. He also had an ultrasound that showed gallstones. HOSPITAL COURSE: The patient was taken to the operating room on the day of his surgery for above procedure. For details, please see dictated operative note. Postoperatively, he did well. NG tube was kept for the first 48 to 72 hours and was removed. He had return of bowel function, but still had some mild distention. His diet was gradually advanced. He was able to void after his Ely was removed on postop day 1. His pain was controlled with a relatively high dose of Dilaudid as he does have chronic pain, but his labs were appropriate postoperatively. He was continued on prophylactic Lovenox and a PPI perioperative, and was felt safe for discharge. On the day of discharge, he was tolerating diet, voiding without difficulty, his pain was controlled with his home medication, and he had had a bowel movement and return of bowel function. FOLLOWUP: Followup appointments as scheduled within the week for staple removal. DISPOSITION: Home to self-care. DISCHARGE INSTRUCTIONS: Discharge instructions were given in written and verbal format. PATHOLOGY: His pathology was discussed with him, and it showed chronic inflammation and gallstones with mucosal erosion, fibrosis. DISCHARGE MEDICATIONS: He will continue his home medication for pain, and otherwise his home medication. cc: Angel Andrea MD
== END 2019-08-31 18:07 | disposition home or self-care (01) | DRG 415 ==
LOC: SURHOLD 05:40 → 4N 07:59
PROVIDERS: ADMIT Surgery; ATTEND Surgery

== ENCOUNTER 2019-09-06 17:23 | Inpatient (IN) ==
[2019-09-06 19:12] LABS: BASO# 0.08 X1000 (0.0-0.2); BASO% 0.8 % (0.0-0.8); EOS# 0.67 X1000 (0.0-0.7); EOS% 7.1 % (0.0-10.0); HEMATOCRIT 42.4 % (42.0-52.0); HEMOGLOBIN 13.6 g/dL (14.0-18.0); IMM GRAN# 0.04 X1000 (0.0-0.04); IMM GRAN% 0.4 % (0.0-0.5); LYMPH# 1.99 X1000 (1.2-3.4); LYMPH% 21.1 % (20.5-51.1); MCH 29.3 PG (27-31); MCHC 32.1 g/dL (33-37); MCV 91.4 FL (81-99); MONO# 0.66 X1000 (0.11-0.59); MPV 8.8 FL (7.4-10.4); NEUT# 6.01 X1000 (1.4-6.5); NEUT% 63.6 % (42.2-75.2); PLT 664 X1000 (130-400); RBC 4.64 XMIL (4.7-6.1); WBC 9.45 X1000 (4.8-10.8)
[2019-09-06 19:36] LABS: AGAP 12; ALB/GLOB RATIO 1.3; ALBUMIN 3.8 g/dL (3.5-5.0); ALKALINE PHOSPHATASE 237 U/L (32-122); AMYLASE 65 U/L (20-200); BUN 19 mg/dL (8-22); CALCIUM 9.2 mg/dL (8.8-10.2); CHLORIDE 103 mmol/L (98-107); COSMO 288; CREATININE 0.9 mg/dL (0.7-1.2); ESTIMATED GFR > 60; GLUCOSE 114 mg/dL (70-104); GOT 27 U/L (10-34); GPT 74 U/L (10-44); LIPASE 67 U/L (13-60); POTASSIUM 5.1 mmol/L (3.5-5.1); SODIUM 143 mmol/L (136-145); TCO2 28 mmol/L (25-35); TOTAL BILIRUBIN < 0.15 mg/dL (0.20-1.00); TOTAL PROTEIN 6.8 g/dL (6.3-8.3)
[2019-09-06] MEDS ORDERED: ZOFRAN IV ONE (21:35)
[2019-09-06] MEDS ORDERED: NS 1,000 ML IV ONE (21:35)
[2019-09-06 21:47] LABS: URINE SOURCE CLEAN CATCH
[2019-09-06 21:48] LABS: BILIRUBIN URINE NEGATIVE (NEGATIVE); BLOOD URINE NEGATIVE (NEGATIVE); COLOR YELLOW; GLUCOSE URINE NEGATIVE (NEGATIVE); KETONE URINE NEGATIVE (NEGATIVE); LEUKOCYTES URINE NEGATIVE (NEGATIVE); NITRITE URINE NEGATIVE (NEGATIVE); PROTEIN URINE 30 mg/dL (NEGATIVE); TURBIDITY URINE CLEAR (CLEAR); UR EPITHELIAL CELLS <10 /HPF (<10); URINE BACTERIA NEGATIVE /HPF; URINE RBC <10 /HPF (<10); URINE WBC <10 /HPF (<10); UROBILINOGEN URINE 2 mg/dL (NORMAL)
--- NOTE | 2019-09-06 22:09 | Diag Imaging Result Doc PS360 ---
EXAM: CT ABD/PELVIS W/IV CONT ONLY INDICATION: intractable nausea and vomiting, abdo pain TECHNIQUE: This exam was performed using automated exposure control, adjustment of mA or kV according to patient size, and/or use of iterative reconstruction technique. COMPARISON: 07/17/2019 FINDINGS: There is mild subsegmental atelectasis at the lung bases. There has been a prior cholecystectomy. The liver, spleen, pancreas, and adrenal glands are essentially unremarkable. There are a few small renal cysts. The kidneys are unremarkable, otherwise. The prostate is mildly prominent. The urinary bladder wall is mildly thickened. This is stable and is probably due to underdistention and chronic trabecular thickening. There has been a recent laparotomy. Ventral abdominal wall skin cristal are present and there is postsurgical edema in the subcutaneous soft tissues and in the adjacent mesentery. There are a few fluid-filled loops of small bowel in the upper abdomen with some air-fluid levels and mild distention. However, there is nothing that would necessarily indicate bowel obstruction. This probably represents a mild postsurgical ileus. The stomach and colon are essentially unremarkable. There is a small droplet of postsurgical gas underlying the superior aspect of the laparotomy incision. IMPRESSION: 1.Postsurgical changes in the abdomen related to recent laparotomy. 2.A few fluid-filled loops of small bowel and air-fluid levels with only mild distention that probably represents mild postsurgical ileus. 3.Other incidental/nonacute findings detailed above. Electronically signed by Madan Leung 09/06/2019 10:07 PM
--- NOTE | 2019-09-06 22:12 | PROVIDER DOCUMENTATION ---
This chart was entered by Roseann Leung Scribe, acting as scribe for Checo Lopez MD. HPI-Abdominal Pain/GI Problem - General Chief Complaint: Vomiting Stated Complaint: VOMITING Time Seen by Provider: 09/06/19 21:24 Allergies/Adverse Reactions: Patient Allergies Allergy/AdvReac Type Severity Reaction Status Date / Time No Known Allergies Allergy Verified 08/22/19 09:50 Home Medications: Home Medication List Medication Instructions Recorded Confirmed Last Taken Type Gabapentin E.r. [Gralise] 600 mg PO TID 05/26/16 08/24/19 08/23/19 22:00 History PRAVAstatin [Pravachol] 80 mg PO QAM 07/17/19 08/24/19 08/24/19 05:00 History Telmisartan 40 mg PO QAM 07/17/19 08/24/19 08/23/19 22:00 History Oxycodone HCl/Acetaminophen 1 ea PO TID 08/22/19 08/24/19 08/23/19 22:00 History [Endocet 10-325 mg Tablet] - History of Present Illness-ABD Nature of Presenting Problems: 53 yowm c/o vomiting since thursday. pt had sx on gall bladder adhesions 2 weeks ago, seen by Dr. Garcia, given suppository and followed up w/Dr. Andrea and given zofran w/no relief. pt had chicken noodle soup for lunch but vomited it up . had small BM at lunch. no sick contacts. no allergies. Severity in ED: reports: mild Onset/Duration: reports: 4 days ago Timing: reports: still present Activities at Onset: reports: none Exposure to sick contacts?: No Modifying Factors: improves with: nothing Associated Symptoms: reports: vomiting. denies: diarrhea, fever/chills Last BM: this afternoon Dark Stools Present?: reports: none noticed Rectal Bleeding: reports: none Rectal Pain: reports: none Recently seen or treated by another doctor?: Yes Review of Systems - Adult - REVIEW OF SYSTEMS - ADULT Constitutional: reports: no symptoms reported. denies: chills, fever, fatique Eyes: reports: no symptoms reported Ears, Nose, Mouth & Throat: reports: no symptoms reported Cardiovascular: reports: no symptoms reported Respiratory: reports: no symptoms reported Gastrointestinal: reports: see HPI, nausea, vomiting. denies: diarrhea, difficulty swallowing, frequent heartburn Genitourinary: reports: no symptoms reported Musculoskeletal: reports: no symptoms reported Integumentary: reports: no symptoms reported Neurological: reports: no symptoms reported Psychiatric: reports: no symptoms reported Endocrine: reports: no symptoms reported Hematologic/Lymphatic: reports: no symptoms reported Allergic/Immunologic: reports: no symptoms reported All Other Systems: Reviewed and Negative Past History - Adult - PAST MEDICAL HISTORY-ADULT Review of Records: reports: Nursing Assessment Review, Medications Reviewed, Social history reviewed & non-contributory. Major Childhood Illnesses: reports: denies history Cardiovascular: reports: denies history Respiratory: reports: denies history Gastrointestinal: reports: denies history Obstetrical/Gynecological: reports: denies history Genitourinary: reports: prostate cancer Musculoskeletal: reports: denies history Neurological: reports: denies history Endocrine/Immune: reports: denies history Other Conditions: reports: denies history - PRIOR SURGERIES/PROCEDURES Surgical/Procedure History: reports: recent surgery, cholecystectomy, other - IMMUNIZATION STATUS Childhood Immunizations: See Nurse Assessment Flu Vaccine: See Nurse Assessment - FAMILY HISTORY Family History: reviewed, not pertinent - SOCIAL HISTORY Smoking: non-smoker Substance Use: alcohol Alcohol Use Frequency: occasionally Physical Exam-General - PHYSICAL EXAM-ADULT Initial Vital Signs Reviewed: Yes - CONSTITUTIONAL General Appearance: alert, no apparent distress. negative: anxious, obtunded, combative - EYES Eyes: PERRL/EOMI - HEAD, EARS, NOSE, MOUTH & THROAT HENMT: normocephalic/atraumatic, moist mucous membranes - NECK Neck: non-tender, full range of motion, supple, normal inspection - RESPIRATORY Respiratory: chest non-tender, lungs clear, normal breath sounds - CARDIOVASCULAR Cardiovascular: normal peripheral pulses, regular rate, rhythm - GASTROINTESTINAL (ABDOMEN) Abdominal Exam: soft, no organomegaly, no pulsatile mass, other (pt has large surgical cristal over mid abd.) - MUSCULOSKELETAL Back Exam: normal inspection Extremity: normal range of motion, non-tender, normal inspection - SKIN Integumentary: normal color, normal turgor, warm/dry - NEUROLOGIC Neurologic: grossly normal, no motor/sensory deficits - PSYCHIATRIC Psych/Mental Status: normal mood/affect, normal thought content, normal thought process, oriented x 3 Progress - PLAN OF CARE/RESULTS Progress/Plan/Lab Results: Vital Signs - 8 hr 03/10/20 17:36 Temperature 98.3 F Pulse Rate 80 Respiratory Rate 18 Blood Pressure 109/67 O2 Sat by Pulse Oximetry 97 Laboratory Results - last 24 hr 09/06/19 09/06/19 18:58 18:58 WBC 9.45 RBC 4.64 L Hgb 13.6 L Hct 42.4 MCV 91.4 MCH 29.3 MCHC 32.1 L RDW Std Deviation 13.0 Plt Count 664 H MPV 8.8 Immature Gran % (Auto) 0.4 Neut % (Auto) 63.6 Lymph % (Auto) 21.1 [place] % (Auto) 7.0 Eos % (Auto) 7.1 Baso % (Auto) 0.8 Immature Gran # (Auto) 0.04 Neut # (Auto) 6.01 Lymph # (Auto) 1.99 [place] # (Auto) 0.66 H Eos # (Auto) 0.67 Baso # (Auto) 0.08 Sodium 143 Potassium 5.1 Chloride 103 Carbon Dioxide 28 Anion Gap 12 BUN 19 Creatinine 0.9 Estimated GFR/1.73 m2 > 60 BUN/Creatinine Ratio 21 Glucose 114 H Calculated Osmolality 288 Calcium 9.2 Total Bilirubin < 0.15 L AST 27 ALT 74 H Alkaline Phosphatase 237 H Total Protein 6.8 Albumin 3.8 Globulin 3.0 Albumin/Globulin Ratio 1.3 Amylase 65 Lipase 67 H Orders Category Date Time Status Saline Loc DIRECTED Care 09/06/19 17:43 Active NPO Diet 09/06/19 17:43 Active ABDOMEN FLAT/UPRIGHT [RAD] Stat Exams 09/06/19 21:25 Ordered AMYLASE [CHEM] Stat Lab 09/06/19 18:58 Completed CBC WITH ELECTRONIC DIFF [HEME] Stat Lab 09/06/19 18:58 Completed COMPREHENSIVE METABOLIC PANEL [CHEM] Stat Lab 09/06/19 18:58 Completed LIPASE [CHEM] Stat Lab 09/06/19 18:58 Completed URINALYSIS W/POSS RFLX CULT [URINALYSIS] Stat Lab 09/06/19 17:43 Uncollected Result Diagrams: 09/06/19 18:58 09/06/19 18:58 - CONSULTS/PCP/HOSPITALIST Notification #1 *Consult/PCP/Hospitalist*: Dr. Sanders Time Discussed: 22:10 Consult Disposition: Admit Departure - Departure Date of Disposition Decision: 09/06/19 Time of Disposition Decision: 22:11 DIAGNOSIS: Intractable nausea and vomiting, Dehydration Disposition: ADMITTED INPATIENT 09 Certified Medical Emergency: Emergent Condition: Fair Referrals and Follow-Ups: Alexander Andrea MD [Primary Care Provider] - - Critical Care Note This patient required my direct & personal management of CC.: No Attestation - Physician/ NEERAJ Attestation Patient care was provided by Advanced Practice Provider:: No The physician spent face to face time with patient:: Yes Advanced Practice Provider documentation review:: Supervising physician onsite and consulted in the evaluation and care of this patient. The physician did have a face to face encounter with the patient. This chart was documented by the indicated scribe, (Roseann Leung, Luiz) and accurately reflects the services I performed and decisions made by me, Checo Sanz MD, as attested by the provider's signature.
[2019-09-06] MEDS ORDERED: SODIUM CHLORIDE 0.9% 10 ML ONE (23:40)
[2019-09-06] MEDS: MORPHINE IV PRN (23:44)
[2019-09-06] MEDS: PROTONIX IV SCH (23:44)
[2019-09-07] MEDS ORDERED: TYLENOL PR PRN (00:06)
[2019-09-07] MEDS: ZOFRAN IV PRN ×2 (01:26→09:10)
[2019-09-07] MEDS: NS 1,000 ML IV SCH ×3 (01:26→22:42)
[2019-09-07] MEDS: MORPHINE IV PRN ×6 (02:36→21:10)
--- NOTE | 2019-09-07 03:31 | HISTORY AND PHYSICAL ---
PRIMARY CARE PROVIDER: Dr. Alexander Andrea. DATE AND TIME: 09/06/2019 at 2245. CHIEF COMPLAINT: Abdominal pain with nausea and vomiting. HISTORY OF PRESENT ILLNESS: Mr. Nunez is a 53-year-old male with a past medical history most notable for hypertension, hyperlipidemia, chronic pain from cervical degenerative disk disease and previous cervical spine surgeries. Also of note, the patient has had a long- standing history with several episodes of small-bowel obstructions, status post what I believe is a total of 6 exploratory laparotomies. According to his friend, the patient and his report that his bowel obstructions have previously been noted to be due secondary to the scarring and adhesions. The patient was just recently admitted to our facility on 08/24/2019, was discharged on 08/31/2019. He was under the care of a surgeon, Dr. Duarte Andrea. He did undergo exploratory laparotomy with lysis of adhesions and an open cholecystectomy for treatment of symptomatic cholelithiasis and a partial small-bowel obstruction. The patient states that on Thursday, September 02, which would be 4 days ago, that he did begin to have nausea and vomiting. He states that on Thursday, he did speak with on-call surgeon for Dr. Andrea and they did call him a Phenergan suppository. The patient states that this did improve his nausea and vomiting, he did not have any further episodes on Thursday. He did see Dr. Andrea in his office on Thursday. He was given a prescription for Zofran and Dr. Andrea did remove some surgical cristal from his linear incision in his abdomen. He did report that he removed every other staple. He did want him to try to start implementing some soft foods again. The patient states on Thursday morning, which would be September 05, that he woke up, he did eat some eggs and did eat chicken noodle soup for lunch. Though, shortly after this, the history began to have nausea and vomiting. He did have worsening abdominal pain for which he states is pretty much along the incision site and it does feel like it is a sharp type pain. He does report that it is constant. He did state he felt his abdomen was a little more distended as well. He did have a bowel movement earlier today. He denies any hematochezia or melena. The patient also denies any headache, dizziness, chest pain, shortness of breath, or cough. He denies any fever, body aches, or chills. He denies any dysuria or urinary frequency. He denies any pain, numbness, tingling, or swelling in extremities. The patient does take chronic pain medicine at home secondary to his cervical spine degenerative joint disease. He has previously been given Dilaudid, though he did report that morphine does tend to control his pain better. Upon evaluation in the ER, initial vital signs: Temperature 98.3 degrees, heart rate 80, respirations 18, blood pressure 109/67, oxygen saturation was 96% on room air. He has no leukocytosis noted. Hemoglobin and hematocrit are stable. Electrolytes were within normal limits. He was noted to have a slight elevation of the ALT at 74, alkaline phosphatase is 237, and lipase was 67. Urinalysis did not show any signs of infection. They did perform a CT abdomen and pelvis with IV contrast only which did show postsurgical changes in the abdomen related to recent laparotomy. There were a few fluid-filled loops of small bowel and air- fluid levels with only mild distention, that probably represents a mild postsurgical ileus. At this time, the patient will be admitted for further treatment and evaluation of his postsurgical ileus, nausea, vomiting, and fluid volume depletion. REVIEW OF SYSTEMS: A 14-point review of systems was conducted with the patient and all were negative, except for pertinent positives mentioned above in HPI. PAST MEDICAL HISTORY: 1. Hypertension. 2. Hyperlipidemia. 3. Cervical spine degenerative disease. 4. Chronic pain. 5. History of prostate cancer for which the patient reports they are monitoring, that he has not had to have surgical intervention, chemotherapy or radiation. 6. History of multiple bowel obstructions. PAST SURGICAL HISTORY: 1. Sinus surgery. 2. Vasectomy. 3. Numerous cervical spine operations. 4. Left inguinal hernia repair. 5. History of reportedly a total of 6 exploratory laparotomies for treatment of bowel obstructions. He also has had an appendectomy and a cholecystectomy performed. Of note, he did just recently undergo an exploratory laparotomy with extensive lysis of adhesions, greater than 3 hours, and an open cholecystectomy with cholangiogram with Dr. Duarte Andrea on 08/24/2019. SOCIAL HISTORY: The patient reports occasionally drinking a beer. He denies any smoking or illicit drug use. His was present at bedside with him. FAMILY HISTORY: Positive for his father having history of prostate cancer. He does not know of his mother or his siblings having any medical complications. ALLERGIES: Patient has no known allergies. HOME MEDICATIONS: We are waiting for the patient's home medication list to be updated and verified, though he did verbally report to me that he does take telmisartan, pravastatin, gabapentin extended release, and Endocet for pain at home. Once his list has been updated and verified, we can continue appropriate medications, though the patient is NPO at this time. DIAGNOSTIC DATA/LABORATORY RESULTS: White blood cell count is 9450, hemoglobin 13.6, hematocrit 42.4, platelet count is 664,000. Sodium 143, potassium 5.1, chloride 103, serum bicarbonate is 28, BUN 19, creatinine 0.9 with a GFR greater than 60. Glucose 114, calcium 9.2, magnesium 2.4. Liver function tests include his total bilirubin to be less than 0.15, AST 27, ALT 74, alkaline phosphatase 237, amylase 65, lipase 67. Urinalysis was obtained via clean catch, was positive for protein. It was negative for glucose, ketones, blood, nitrites, leukocytes, white blood cells, or bacteria. CT of the abdomen and pelvis did show postsurgical changes in the abdomen related to recent laparotomy. There were fluid-filled loops of small bowel and air-fluid levels with only mild distention, that probably represents a mild postsurgical ileus. There were other incidental nonacute findings. Please see CT report for full details. PHYSICAL EXAMINATION: VITAL SIGNS: Temperature 98.1 degrees, heart rate 73, respirations 20, blood pressure is 137/87, oxygen saturation is 99% on room air. GENERAL: Mr. Nunez is a pleasant 53-year-old male, he was resting in a reclining chair in the [facility] area of the ER. He was in no acute distress. He was awake, alert, and able answer questions appropriately. HEENT: Head is atraumatic, normocephalic. Pupils are equal, round, reactive to light, were 3 mm bilaterally and brisk. Oral mucosa is slightly dry. Oropharynx is clear. NECK: Supple. Trachea midline. CARDIOVASCULAR: The patient has S1, S2 present. No murmurs, gallops, rubs appreciated with a regular rate and rhythm. PULMONARY: Patient has symmetrical chest expansion bilaterally. Lung sounds are clear to auscultation in bilateral full tatum. ABDOMEN: Soft, does appear to be slightly distended. Bowel sounds were present in all 4 quadrants, were normoactive. The patient did report some tenderness, though this was mainly just along his midline linear abdominal incision. The patient does have a long midline linear abdominal incision noted. He does have cristal present. This does appear to be healing well. There was no surrounding erythema, warmth, or drainage present. EXTREMITIES: No cyanosis or edema noted. Pulse, motor, and sensory were intact in all extremities. Radial pulses were 2+ bilaterally. Pedal pulses 1+ bilaterally. INTEGUMENTARY: The patient's skin is pink, warm, and dry. NEUROLOGICAL: The patient is alert and oriented to person, place, time and situation. He is able to all extremities. There are no focal neurological deficits noted. ASSESSMENT/PLAN: 1. Postsurgical ileus. The patient, at this time, does have a slightly distended abdomen, though he is not having any active nausea and vomiting at this time. We will place him NPO. We will provide IV hydration. We will also provide p.r.n. antiemetics alternating with Zofran and Phenergan as needed. We will place a consult with Dr. Tyson. He is on-call for Dr. Andrea this evening, though Dr. Andrea is the surgeon that performed his laparotomy and cholecystectomy. We will await their evaluation and further recommendations. Will continue to follow. 2. Status post exploratory laparotomy with lysis of adhesions and open cholecystectomy. The patient's surgical incision does appear to be healing well at this time. He did report that he did see Dr. Andrea yesterday in his office and they did remove every other staple. Though he does not have any surrounding erythema, warmth or drainage noted. We have placed a consult with surgery. We will await their evaluation and further recommendations for management. 3. Fluid volume depletion. This likely secondary to his reported nausea and vomiting. He did receive a 1 L normal saline bolus in the ER. We will continue with normal saline at 100 mL/h. 4. Nausea and vomiting. We have placed orders for p.r.n. antiemetics of Zofran and Phenergan to be alternated as needed. 5. History of hypertension. The patient is a little volume depleted. His blood pressure on initial arrival was 109/67. It has improved some with a recheck of 137/87. Though given that he is volume depleted, we will hold off on giving him any antihypertensive at this time. We will continue to monitor and implement these if necessary. 6. Deep vein thrombosis prophylaxis will be provided with sequential compression devices. He has been placed on the surgical floor with telemetry. He will have vital signs every 8 hours. We will do strict intake and output. We will repeat a CBC and BMP in the morning. Further orders and recommendations pending hospital course, diagnostic studies, and physician evaluation. Dictated by AKUA Pugh for Demian Sanders MD I have performed a face to face diagnostic evaluation. Labs/Xrays- reviewed. Exam- Chest - clear, CV- regular. A/P- Post op ileus- Admit, NPO, IV Fluids, Surgery consult. Dr. Sanders cc: Demian Sanders MD MTD
[2019-09-07] MEDS: SODIUM CHLORIDE 0.9% INJ PRN ×2 (05:45→21:09)
[2019-09-07] MEDS: PHENERGAN IV PRN ×4 (05:45→21:09)
[2019-09-07 07:08] LABS: BASO# 0.08 X1000 (0.0-0.2); BASO% 0.8 % (0.0-0.8); EOS% 8.1 % (0.0-10.0); HEMATOCRIT 41.3 % (42.0-52.0); HEMOGLOBIN 12.9 g/dL (14.0-18.0); IMM GRAN# 0.03 X1000 (0.0-0.04); IMM GRAN% 0.3 % (0.0-0.5); LYMPH# 2.04 X1000 (1.2-3.4); LYMPH% 20.6 % (20.5-51.1); MCH 28.6 PG (27-31); MCHC 31.2 g/dL (33-37); MCV 91.6 FL (81-99); MONO# 0.61 X1000 (0.11-0.59); MONO% 6.2 % (1.7-9.3); MPV 8.9 FL (7.4-10.4); NEUT# 6.34 X1000 (1.4-6.5); PLT 595 X1000 (130-400); RBC 4.51 XMIL (4.7-6.1)
[2019-09-07 07:43] LABS: AGAP 9; BUN 15 mg/dL (8-22); CALCIUM 8.3 mg/dL (8.8-10.2); CHLORIDE 105 mmol/L (98-107); COSMO 282; CREATININE 0.8 mg/dL (0.7-1.2); ESTIMATED GFR > 60; GLUCOSE 100 mg/dL (70-104); POTASSIUM 4.1 mmol/L (3.5-5.1); SODIUM 141 mmol/L (136-145); TCO2 27 mmol/L (25-35)
--- NOTE | 2019-09-07 07:47 | GENERAL SURGERY PROGRESS NOTE ---
DATE: 09/07/2019 SUBJECTIVE: Patient known to my partner Dr. Andrea. He 2 weeks ago had exploratory laparotomy and lysis of adhesions. He also had his cholecystectomy at that time. He has had histories of bowel obstructions previously, but initially did okay. In the postoperative period, he developed nausea, vomiting, and abdominal pain. He was advised to go to the ER. In the ER, they got a CT scan that suggested more of a postoperative ileus, but he was admitted by the hospitalist and started the resuscitation process. The patient is currently feeling a little bit better, and feels like his bowels are starting to come around. OBJECTIVE: Vital Signs: Patient is currently afebrile. His vital signs are stable. General: No acute distress. Cardiovascular: Regular rate and rhythm. Lungs: Grossly clear. Abdomen: Soft. No real distention. Incision looks like it is healing well. Bowel sounds auscultated. IMAGING: Reviewed. LABORATORY: White blood cell count normal. No left shift. He does have elevation in his platelet count. Remainder of labs reviewed. His alkaline phosphatase is slightly elevated. His bilirubin is normal and lipase is slightly elevated. ASSESSMENT AND PLAN: A 53-year-old gentleman with postoperative ileus. Postoperative ileus. At this time, continue resuscitation and monitoring. He does have a slightly elevated alkaline phosphatase and lipase. I wonder if he has got a little bit of pancreatitis. He did have a cholangiogram during his procedure, but at this time, we will just continue supportive care. If he does have pancreatitis, it is improving, and is only very mild. I will tell Dr. Andrea that he is back in the hospital. cc: Kyle Tyson MD [facility]
[2019-09-07] MEDS ORDERED: LABETALOL IV PRN (17:31)
--- NOTE | 2019-09-07 18:15 | PROGRESS NOTE ---
DATE: 09/07/2019 SUBJECTIVE: Patient has no major complaints. He is still having a little bit of issue with nausea. OBJECTIVE: Blood pressure 144/70, heart rate 72, respiratory 16, and temperature 98.9 degrees.Cardiovascular: Regular rate and rhythm. Pulmonary: Bilateral breath sounds. Clear to auscultation. GI: Soft. Nontender. Nondistended. Bowel sounds are positive, and were diminished. LABORATORY DATA: He has a hemoglobin and hematocrit of 12 and 41. White blood cell count 9.9. PROBLEMS: 1. Postoperative ileus. CT was really not that impressive, but we are going to do NPO and kind of see how he does. Repeat his plain films tomorrow. Advance his diet if he is doing okay. He is stable otherwise. 2. Hypertension. We will put in some p.r.n. labetalol. DISPOSITION: I think if he has not had any major issues, anticipate advancing diet tomorrow if his plain films look better at the discretion of Surgery. We will follow along with you. cc: Minesh Huggins MD
--- NOTE | 2019-09-07 19:03 | GENERAL SURGERY PROGRESS NOTE ---
DATE: 09/07/2019 SUBJECTIVE: He is feeling better. No pain. He is passing gas. No further vomiting. OBJECTIVE: He is afebrile. No tachycardia.General: He is alert. Abdomen: Soft, nontender, nondistended. Incision is intact. I reviewed his labs. His electrolytes are okay. White count normal, hematocrit stable. ASSESSMENT/PLANS: A 53-year-old gentleman status post exploratory laparotomy with lysis of adhesions. I suspect he developed some degree of dehydration contributing to his symptoms. We will continue to hydrate and correct electrolytes as needed. Otherwise, bowel rest with ice chips only for comfort. We will advance his diet gradually over the next 24 to 48 hours. cc: Angel Andrea MD
[2019-09-07] MEDS: SODIUM CHLORIDE 0.9% INJ SCH (22:43)
[2019-09-07] MEDS: PROTONIX IV SCH (22:43)
[2019-09-08] MEDS: PHENERGAN IV PRN ×4 (02:09→20:41)
[2019-09-08] MEDS: SODIUM CHLORIDE 0.9% INJ PRN ×3 (02:09→20:42)
[2019-09-08] MEDS: MORPHINE IV PRN ×4 (02:10→20:41)
[2019-09-08 07:46] LABS: HEMATOCRIT 41.3 % (42.0-52.0); HEMOGLOBIN 13.8 g/dL (14.0-18.0); MCH 30.1 PG (27-31); MCHC 33.4 g/dL (33-37); MCV 90.2 FL (81-99); MPV 9.3 FL (7.4-10.4); RBC 4.58 XMIL (4.7-6.1); RDW 12.5 % (11.5-14.5); WBC 9.2 X1000 (4.8-10.8)
[2019-09-08 08:17] LABS: AGAP 9; BUN 11 mg/dL (8-22); CALCIUM 9.1 mg/dL (8.8-10.2); CHLORIDE 104 mmol/L (98-107); COSMO 280; CREATININE 0.7 mg/dL (0.7-1.2); ESTIMATED GFR > 60; GLUCOSE 87 mg/dL (70-104); POTASSIUM 4.5 mmol/L (3.5-5.1); SODIUM 141 mmol/L (136-145); TCO2 28 mmol/L (25-35)
--- NOTE | 2019-09-08 10:39 | Diag Imaging Result Doc PS360 ---
EXAM: ABDOMEN FLAT/UPRIGHT 09/08/2019 HISTORY: sbo TECHNIQUE: Flat and upright abdomen COMMENT: There is stool throughout the colon. There are some small bowel loops in the left abdomen which are slightly distended with gas. This was also the case on 07/17/2019. There are surgical skin clips to the right of the midline from the epigastrium to the umbilicus. There are surgical clips in the right upper quadrant. IMPRESSION: Mild constipation. The possibility of ileus cannot be excluded. Electronically signed by Flavio Flores 09/08/2019 10:36 AM
[2019-09-08] MEDS: NEO-SYNEPHRINE 1% NASAL SPRAY NAS SCH (18:10)
--- NOTE | 2019-09-08 19:18 | GENERAL SURGERY PROGRESS NOTE ---
DATE: 09/08/2019 SUBJECTIVE: He feels better. He is passing gas. No further vomiting. He says he is starting to get hungry. He is ambulating. No abdominal pain. No fevers. No tachycardia. OBJECTIVE: Vital signs: Blood pressure 146/89. General: He is alert. Abdomen: Soft, nontender, nondistended. Incision is intact. White count is 5, hematocrit is 41. Creatinine is 0.7, potassium 4.5. ASSESSMENT AND PLAN: This is a 53-year-old gentleman with most likely dehydration following large operation a couple weeks ago. He had some vomiting. This has resolved with antiemetics and IV fluids. We will give him clear liquids today and advance his diet gradually, with plans of just full liquids over the next couple weeks. Otherwise, no plans for surgical intervention. I do not suspect a complete bowel obstruction. cc: Angel Andrea MD
--- NOTE | 2019-09-09 00:50 | PROGRESS NOTE ---
DATE: 09/08/2019 SUBJECTIVE: Patient developed epistaxis today. OBJECTIVE: Vital signs: Blood pressure was stable at 154/89, heart rate 72, respiratory is 16, temperature 98.5 degrees. Cardiovascular: Regular rate and rhythm. Pulmonary: Bilateral breath sounds, clear to auscultation. Gastrointestinal: Soft, nontender, nondistended. Bowel sounds are positive. LABORATORY DATA: White count 9, hemoglobin and hematocrit 13 and 41, platelets 574,000. Basic was normal. ASSESSMENT: 1. Epistaxis, which is significant requiring a local tympanic occlusion with a Rhino Rocket. He has been placed on Omkar-Synephrine. We will continue to follow. 2. Postoperative ileus. He seems to be doing well. We are going to advance his diet. 3. Hypertension, stable. DISPOSITION: Pending clinical status of his atypical behaviors. cc: Minesh Huggins MD
[2019-09-09] MEDS: PROTONIX IV SCH (01:03)
[2019-09-09] MEDS: NEO-SYNEPHRINE 1% NASAL SPRAY NAS SCH ×3 (01:03→20:07)
[2019-09-09] MEDS: SODIUM CHLORIDE 0.9% INJ SCH (01:03)
[2019-09-09] MEDS: PHENERGAN IV PRN ×5 (01:03→20:08)
[2019-09-09] MEDS: SODIUM CHLORIDE 0.9% INJ PRN ×4 (01:04→15:12)
[2019-09-09] MEDS: MORPHINE IV PRN ×5 (01:04→20:07)
--- NOTE | 2019-09-09 11:30 | GENERAL SURGERY PROGRESS NOTE ---
DATE: 09/09/2019 SUBJECTIVE: Some epistaxis overnight. He had a pressure sponge placed. This seems to have resolved. No further vomiting. He has had a bowel movement this morning, passing gas. He is tolerating clear liquids. OBJECTIVE: General: He is alert. Cardiovascular: Normal rate. Incision is intact. Abdomen is soft, nontender. LABORATORY DATA: I reviewed his labs, so nothing new today, but electrolytes are okay yesterday, as well as renal function. ASSESSMENT AND PLAN: A 53-year-old gentleman with nausea, vomiting and dehydration status post operation 2 weeks ago for extensive lysis of adhesions and cholecystectomy. He is doing better. We will advance to full liquids. We need to remove his nasal pressure gauze and I removed the remainder of her cristal. Dr. Diane following the patient. If he tolerates full liquids, we can let him go home this evening or tomorrow, depending on how he feels. cc: Angel Andrea MD
--- NOTE | 2019-09-09 13:22 | CONSULTATION ---
DATE OF CONSULTATION: 09/09/2019 SUBJECTIVE: Patient admitted for ileus following cholecystectomy approximately 2 weeks ago. The patient began having left anterior posterior epistaxis. He had an NG tube for extended period time prior to this admission. He had a Rhino Rocket placed with good control of epistaxis this morning. OBJECTIVE: RAPID RHINO in position on the left. No anterior epistaxis. Oral cavity, pharynx: No posterior epistaxis. PROCEDURE: RAPID RHINO deflated, removed with no bleeding. Oropharynx and anterior nares clear. PLAN: I discussed with the patient what to do if bleeding recurs at home. Discussed replacement of pack if bleeding recurs while in the hospital. Available if needed. cc: Syed Escalante MD
[2019-09-10] MEDS: PROTONIX IV SCH
[2019-09-10] MEDS: SODIUM CHLORIDE 0.9% INJ SCH
[2019-09-10] MEDS: PHENERGAN IV PRN ×2 (05:32)
[2019-09-10] MEDS: MORPHINE IV PRN ×3 (05:33→10:08)
[2019-09-10 07:47] VITALS: BP 134/91
--- NOTE | 2019-09-10 08:26 | GENERAL SURGERY PROGRESS NOTE ---
DATE: 09/10/2019 SUBJECTIVE: The patient is doing well. No further bleeding from the nose. No abdominal pain, nausea, or vomiting. He is tolerating a full liquid diet and passing gas and had a bowel movement. OBJECTIVE: Vital Signs: He is afebrile. Vital signs are stable. General: He is awake, alert, oriented x3. No acute distress. Gastrointestinal: Soft, nontender, nondistended. ASSESSMENT AND PLAN: A 53-year-old male with small bowel obstruction now status post lysis of adhesions and open cholecystectomy. He is much improved. We will discharge him home today. Instructions were given. cc: Get Diane MD
[2019-09-10] MEDS: NEO-SYNEPHRINE 1% NASAL SPRAY NAS SCH (09:05)
--- NOTE | 2019-09-29 14:51 | DISCHARGE SUMMARY ---
ADMISSION DATE: 09/06/2019 DISCHARGE DATE: 09/10/2019 DISCHARGE DIAGNOSES: 1. Epistaxis. 2. Postoperative ileus. 3. Hypertension. PRIMARY CARE PHYSICIAN: Dr. Andrea. CONSULTATIONS: 1. Dr. Duarte Andrea. 2. Dr. Escalante, ENT. PROCEDURES: Inflatable ENT rhino rocket for coagulation. HISTORY: Briefly, this is a 53-year-old male who underwent numerous exploratory laparatomy's. He had one recently, started developing nausea, vomiting, and abdominal pain. Dr. Tyson was consulted. He had a recent lysis of adhesions and cholecystostomy. He was placed on fluids. Dr. Tyson recommended conservative measures, thought possibly that he had possibly from his cholangiogram and CT. He was doing okay, and then his diet was advanced. He was actually doing fine from that standpoint. X-ray on the showed some constipation but was otherwise negative. His diet was further advanced. He then developed epistaxis which required a rhino rocket and hemo tamponade. ENT was consulted. We continued on Omkar-Synephrine. Rapid rhino was removed, and I do not think he had further bleeding. On the , Dr. Diane saw him that morning, and felt he was stable and discharged him home before I could see him. His medications were unresolved, but were Percocet, gabapentin 600 t.i.d., Pravachol 80, and telmisartan. I do not think he was on any anticoagulants. Discharge condition is stable. cc: MD Dr. Boris Mclaughlin MD
== END 2019-09-10 11:20 | disposition home or self-care (01) | DRG 390 ==
LOC: ED 17:23 → 4N 23:22 → SUATTDRO 23:22
PROVIDERS: ATTEND Internal Medicine